=== PATIENT | female | born 2000 | race Caucasian/White ===

== ENCOUNTER 2022-01-18 14:17 | Emergency (ER) | payer OTHER ==
[2022-01-18] MEDS ORDERED: HYDROCODON-ACE1 EAC4 PO (19:12)
[2022-01-18] MEDS ORDERED: CYCLOBENZAPRINE10 MG PO (19:12)
== END 2022-01-18 19:22 | disposition home or self-care (01) ==
LOC: ER1 14:17
DX: S09.90XA Unspecified injury of head, initial encounter (principal); S16.1XXA Strain of muscle, fascia and tendon at neck level, initial encounter; I25.2 Old myocardial infarction; V40.6XXA Car passenger injured in collision with pedestrian or animal in traffic accident, initial encounter; W22.12XA Striking against or struck by front passenger side automobile airbag, initial encounter; Y92.410 Unspecified street and highway as the place of occurrence of the external cause
CPT/HCPCS: 70450; 72125; 99283